=== PATIENT | male | born 1955 | race African-American/Black ===

== ENCOUNTER 2020-06-26 17:01 | Emergency (ER) ==
--- NOTE | 2020-06-26 18:20 | RAD ---
SINGLE VIEW OF THE CHEST: 06/26/20 HISTORY: Cough. COMPARISON: None. FINDINGS: Single view of the chest shows a normal sized cardiomediastinal silhouette. There is no evidence of c onsolidation, a normal sized cardiomediastinal silhouette. There is no evidence of consolidation, mas s or pleural effusion. Shrapnel projects over the right lower chest wall. IMPRESSION: No evidence of acute cardiopulmonary disease. POS: [facility]
[2020-06-27 22:21] LABS: SARS-CoV-2 PCR by NAA DETECTED (NotDetected)
== END 2020-06-26 18:35 | disposition home or self-care (01) ==
LOC: MADERS 17:01
DX: U07.1 COVID-19 (principal); E11.9 Type 2 diabetes mellitus without complications; E78.5 Hyperlipidemia, unspecified; I10 Essential (primary) hypertension; Z79.84 Long term (current) use of oral hypoglycemic drugs; Z79.899 Other long term (current) drug therapy
CPT/HCPCS: 71045; 87635; U0003; U0005